=== PATIENT | female | born 1995 | race Two or more races ===

== ENCOUNTER 2020-04-08 15:27 | Outpatient (CLI) | payer MEDICAID, SELFPAY ==
--- NOTE | ~2020-04-08 | US_ITS ---
EXAMINATION: US OB <= 14 weeks fetus DATE: 04/08/2020 16:09 INDICATION: First trimester dating TECHNIQUE: Real-time pelvic transabdominal ultrasound was performed. COMPARISON: None. FINDINGS: The uterus measures 8.9 x 7.3 x 6.0 cm. There is an intrauterine gestational sac. A yolk s ac is identified. heart motion is identified measuring 161 beats per minute (bpm) by M-mode Dop pler. The crown rump length measures 1.5 cm , which correlates with an estimated gestational ag e of 7 weeks and 6 day(s) (+/-) 5 day(s). The right ovary is not visualized however no right adnexal abnormality is seen. The left ovary measur es 3.4 x 2.5 x 2.7 cm. There is normal vascular flow in the left ovary. There is no free fluid in the pelvis. IMPRESSION: 1. Live intrauterine with an estimated gestational age of 7 weeks and 6 day(s) (+/-) 5 day( s) and an estimated delivery date of 11/19/2020. Reviewed, dictated and finalized at location A. ER FLATWORK IMPRESSION: 1. Live intrauterine with an estimated gestational age of 7 weeks and 6 day(s) (+/-) 5 day(s) and an estimated delivery date of 11/19/2020.
== END 2020-04-08 15:28 | disposition home or self-care (01) ==
PROVIDERS: Visit Provider Obstetrics & Gynecology
DX: N91.2 Amenorrhea, unspecified (principal)
CPT/HCPCS: 76801

== ENCOUNTER 2020-04-17 12:14 | Emergency (ER) | payer MEDICAID, SELFPAY ==
--- NOTE | 2020-04-17 12:32 | ED.NAVMDI ---
HPI - Nausea/Vomiting/Diarrhea General Chief complaint: Nausea/Vomiting/Diarrhea Stated complaint: 9 wks /headache/tired/vomiting Time Seen by Provider: 04/17/20 12:32 Source: patient and RN notes reviewed Mode of arrival: ambulatory Limitations: no limitations History of Present Illness HPI Narrative: 25-year-old female presents to the urgent care with complaints of headache, increased fatigue, backaches, vomiting yesterday. States that she ate left over food and has a HX of GI issues. States that she feels better today but has mild suprapubic pain (pain scale 2). Denies urinary SX. Denies vaginal discharge or bleeding. States that she is able to tolerate fluids today 9 weeks preg G[address] Dr Roxie Mcfarlane =, states that she had her first appointment with OB on week 7, All lab work was normal and ultrasound showed an intrauterine with a heartbeat. Has an apt Apr Related Data Home Medications Medication Instructions Recorded Confirmed docosahexaenoic acid 200 mg capsule mg PO 03/31/20 03/31/20 prenat.vits,eliza,[id number] 1 tablet PO DAILY 04/17/20 04/17/20 [ Vitamin] Allergies Allergy/AdvReac Type Severity Reaction Status Date / Time No Known Allergies Allergy Unverified 04/17/20 12:22 Review of Systems Review of Systems: Narrative: CONSTITUTIONAL: Denies fever. chills, or sweats yesterday EYES: Denies visual changes, redness, or discharge. ENT: Denies rhinorrhea, congestion, sore throat, or otalgia. CARDIOVASCULAR: Denies chest pain, palpitations, or edema. RESPIRATORY: Denies cough or dyspnea. GASTROINTESTINAL: abdominal pain, nausea, vomiting x 1 yesterday. Denies diarrhea. GENITOURINARY: Denies dysuria or hematuria. SKIN: Denies rash or itching. MUSCULOSKELETAL: Denies back pain, joint pain, or myalgia. NEUROLOGIC: Denies numbness, or weakness. Headache yesterday PSYCHIATRIC: Denies anxiety or depression. All other systems reviewed are negative, except as documented in HPI. [facility] Social History Social History (Updated 03/31/20 @ 10:11 by Antonia Walker) Smoking status: Never smoker Alcohol intake: never Substance use: never Comments At the time of my signature, I reviewed and agree with the nursing past medical, surgical, social, and family history. There is no relevant family history pertinent to the patient complaint. Exam Narrative: Exam Narrative: GENERAL: This is a well-nourished, well-developed patient, in no apparent distress. HEAD: normocephalic, atraumatic. EYES: PERRL. Sclera clear/white. Vision is grossly intact. NECK: Neck supple, non-tender without lymphadenopathy, masses or thyromegaly. CARDIOVASCULAR: Regular rate and rhythm without murmurs, gallops, or rubs. RESPIRATORY: Clear to auscultation. Breath sounds equal bilaterally. No wheezes, rales, or rhonchi. GASTROINTESTINAL: Abdomen soft, nondistended. Bowel sounds are active. No hepato-splenomegaly, or palpable masses. No guarding. No rebound tenderness. Suprapubic tenderness noted on light palpation. SKIN: warm, intact with no suspicious lesions or rash, good texture and turgor. NEURO: awake, alert, and oriented to person, place and time. There were no obvious focal neurologic abnormalities. EXTREMITIES: No clubbing, cyanosis, or edema. No joint tenderness, effusion, or edema noted. BACK: Nontender without deformity or crepitance. No flank tenderness. Course Vital Signs Vital signs: Vital Signs Temperature 97.5 F L 04/17/20 12:35 Pulse Rate 82 04/17/20 12:35 Respiratory Rate 04/17/20 12:35 Blood Pressure 110/64 04/17/20 12:35 Pulse Oximetry 100 04/17/20 12:35 Temperature 97.5 F L 04/17/20 12:35 Pulse Rate 82 04/17/20 12:35 Respiratory Rate 20 04/17/20 12:35 Blood Pressure 110/64 04/17/20 12:35 Pulse Oximetry 100 04/17/20 12:35 Reviewed, normal MDM - Nausea/Vomiting/Diarrhea Differential Diagnosis Differential diagnosis: Likely food poisoning, nakita
[2020-04-17 12:35] VITALS: BP 110/64; PULSE 82; RESP 20; TEMP 36.4; O2SAT 100
== END 2020-04-17 13:00 | disposition home or self-care (01) ==
PROVIDERS: Emergency Provider Nurse Practitioner; PCP Obstetrics & Gynecology
DX: O26.892 Other specified pregnancy related conditions, second trimester (principal); Z3A.09 9 weeks gestation of pregnancy
CPT/HCPCS: 81003; 99212; G0463

== ENCOUNTER 2020-04-21 09:01 | Emergency (ER) | payer MEDICAID, SELFPAY ==
--- NOTE | ~2020-04-21 | XR_ITS ---
EXAMINATION: XR chest 1V portable INDICATION: Shortness of breath TECHNIQUE: Portable AP chest at 1114 hours COMPARISON: None available FINDINGS: The lungs are free of acute opacities. There is no pleural effusion or pneumothorax. The ca rdiomediastinal silhouette is normal. IMPRESSION: 1. No acute cardiopulmonary abnormality. Reviewed, dictated and finalized at location A. INSPECTOR
--- NOTE | ~2020-04-21 | US_ITS ---
EXAMINATION: US OB <= 14 weeks fetus DATE: 04/21/2020 10:54 INDICATION: Right lower quadrant pain, first trimester TECHNIQUE: Real-time pelvic transabdominal and transvaginal ultrasound was performed. COMPARISON: 04/08/2020 FINDINGS: The uterus measures 8.2 x 7.1 x 7.9 cm. There is an intrauterine gestational sac. A yolk s ac is identified. heart motion is identified measuring 172 beats per minute (bpm) by M-mode Dop pler. The crown rump length measures 2.7 cm , which correlates with an estimated gestational ag e of 9 weeks and 4 day(s) (+/-) 6 day(s). The right ovary measures 3.3 x 1.3 x 1.4 cm. The left ovary measures 2.3 x 2.2 x 1.3 cm. There is nor mal vascular flow in the ovaries. There is no free fluid in the pelvis. IMPRESSION: 1. Live intrauterine with an estimated gestational age of 9 weeks and 4 day(s) (+/-) 6 day( s) and an estimated delivery date of 11/20/2020. 2. No sonographic correlate for the patient's symptoms. Reviewed, dictated and finalized at location A. R MECHANIC IMPRESSION: 1. Live intrauterine with an estimated gestational age of 9 weeks and 4 day(s) (+/-) 6 day(s) and an estimated delivery date of 11/20/2020. 2. No sonographic correlate for the patient's symptoms.
[2020-04-21 09:08] VITALS: BP 120/78; PULSE 66; RESP 17; TEMP 36.6; O2SAT 97
[2020-04-21 09:51] LABS: Basophils Absolute Auto 0.1 K/mm3 (0.0-0.1); Basophils Percent Auto 0.4 % (0.2-1.2); Eosinophils Absolute Auto 0.1 K/mm3 (0-0.3); Eosinophils Percent Auto 0.6 % (0-4.4); Hematocrit 42.1 % (37.0-47.0); Hemoglobin 14.2 g/dL (12.0-15.0); Immature Granulocyte Absolute 0.07 K/mm3 (0.00-0.031); Immature Granulocyte Percent A 0.6 % (0-0.5); Lymphocytes Absolute Auto 3.25 K/mm3 (0.9-3.2); Lymphocytes Percent Auto 28.4 % (18.3-44.2); Mean Corpuscular HGB Conc 33.7 g/dl (32-36); Mean Corpuscular Hemoglobin 28.7 pg (26-34); Mean Corpuscular Volume 85.1 fl (80-100); Mean Platelet Volume 9.6 fl (7.4-10.4); Monocytes Absolute Auto 0.7 K/mm3 (0.1-0.6); Monocytes Percent Auto 6.5 % (2.6-8.5); Neutrophils Absolute Auto 7.3 K/mm3 (1.3-6.7); Neutrophils Percent Auto 63.5 % (45.5-73.1); Platelet Count Result 375 k/mm3 (150-375); Red Blood Count 4.95 M/mm3 (4.2-5.4); Red Cell Distribution Width 13.7 % (11.5-14.5); White Blood Count 11.4 K/mm3 (4.5-10.0)
[2020-04-21 09:58] LABS: Add Urine Microscopic? YES; Appearance Urine Clear (Clear); Bacteria Urine Trace /hpf; Bilirubin Urine Negative (Negative); Blood Urine Negative (Negative); Color Urine Yellow (Yellow); Glucose Urine UA Negative (Negative); Ketones Urine Negative (Negative); Leukocyte Esterase Ur Negative LEU/UL (Negative); Mucus Urine Rare /lpf; Nitrate Urine Negative (Negative); Protein Urine Negative (Negative); Specific Grav Ur 1.016 (1.001-1.035); Squamous Epithelial Cell Urine Occasional /hpf (Few); Urobilinogen Urine Negative mg/dL (<2.0); WBC Urine 0-3 /hpf
[2020-04-21 10:07] LABS: Alanine Aminotransferase 53 U/L (4-35); Albumin Level 4.3 g/dL (3.5-5.1); Alkaline Phosphatase 60 U/L (38-126); Anion Gap 6 mmol/L (8-16); Aspartate Amino Transferase 47 U/L (14-36); Bilirubin,Total 0.3 mg/dL (0.2-1.3); Blood Urea Nitrogen 7 mg/dL (7-17); Calcium 9.2 mg/dL (8.4-10.2); Carbon Dioxide 27 mmol/L (22-30); Chloride 102 mmol/L (98-107); Estimated CRCL calculation 95 ml/min; Estimated Glomerular Filt Rate > 60; Glucose 74 mg/dL (65-105); Potassium 3.5 mmol/L (3.4-5.0); Sodium 135 mmol/L (137-145)
--- NOTE | 2020-04-21 11:07 | ED.ABDPAIN ---
HPI - Abdominal Pain General Chief Complaint: Abdominal Pain Stated Complaint: abdominal pain, 10 wks Time Seen by Provider: 04/21/20 09:15 Source: patient Mode of arrival: ambulatory Limitations: no limitations History of Present Illness HPI narrative: Patient is a 25-year-old female who presents to emergency department for evaluation of having had congestion headache and nonproductive cough started last Tuesday patient notes that her symptoms lasted for 1 day and resolved patient is followed by Dr. Mcfarlane is currently 10 weeks has had an ultrasound showing intrauterine patient denying any abdominal pain at this time noting that she has been getting for over a week now some intermittent discomfort in the right lower quadrant patient on arrival in no distress denies fever vomiting vaginal bleeding discharge currently is only taking vitamins denies sick contacts at home would like to be tested for Covid Related Data Home Medications Medication Instructions Recorded Confirmed docosahexaenoic acid 200 mg capsule mg PO 03/31/20 03/31/20 prenat.vits,eliza,[id number] 1 tablet PO DAILY 04/17/20 04/17/20 [ Vitamin] Allergies Allergy/AdvReac Type Severity Reaction Status Date / Time No Known Allergies Allergy Verified 04/21/20 09:15 Review of Systems Review of Systems: All systems reviewed & are unremarkable except as noted in HPI and below PMFSH Social History Social History Smoking status: Never smoker Alcohol intake: never Substance use: never Exam Narrative: Exam Narrative: GENERAL: Well-appearing, well-nourished, and in no acute distress. HEAD: Normocephalic, atraumatic. EYES: PERRLA and EOMI. ENT: Nares clear, no rhinorrhea or epistaxis. Mucous membranes moist. CHEST: Clear to auscultation. No respiratory distress. No wheezes rales or rhonchi HEART: Regular rate and rhythm. No murmur heard. Normal peripheral pulses. ABDOMEN: Soft, nontender, nondistended EXTREMITIES: Normal range of motion. No edema. SKIN: Warm, dry, no rash. NEURO: No focal deficits. Alert and oriented x3. PSYCH: Normal mood and affect. Course Course Emergency Course: Patient in the room no distress aware of case findings treatment plan diagnosis as well as discussion and recommendations of her piper helper provided with reasons to return hemodynamically stable no pneumonia normal oxygenation Consultations Consultation #1: Discussed case with Dr. Mcfarlane who would like an ultrasound as well as a chest x-ray if those are normal patient can follow in clinic as planned and can be treated symptomatically for her cold symptoms and is aware of pending Covid testing Date: 04/21/20 Time: 11:08 Vital Signs Vital signs: Vital Signs Temperature 97.8 F 04/21/20 09:08 Pulse Rate 66 04/21/20 09:08 Respiratory Rate 17 04/21/20 09:08 Blood Pressure 120/78 04/21/20 09:08 Pulse Oximetry 97 04/21/20 09:08 Temperature 97.8 F 04/21/20 09:08 Pulse Rate 66 04/21/20 09:08 Respiratory Rate 17 04/21/20 09:08 Blood Pressure 120/78 04/21/20 09:08 Pulse Oximetry 97 04/21/20 09:08 MDM - Abdominal Pain MDM Narrative Medical decision making narrative: Patient in the room no distress aware of case findings treatment plan diagnosis will follow with piper helper as planned no high risk changes in the blood work or imaging will be discharged provided with reasons to return ABCs and vital signs intact and stable Lab Data Result diagrams: 04/21/20 09:41 04/21/20 09:41 Labs: Lab Results 04/21/20 04/21/20 04/21/20 Range/Units 09:41 09:41 09:41 WBC 11.4 H (4.5-10.0) K/mm3 RBC 4.95 (4.2-5.4) M/mm3 Hgb 14.2 (12.0-15.0) g/dL Hct 42.1 (37.0-47.0) % MCV 85.1 (80-100) fl MCH 28.7 (26-34) pg MCHC 33.7 (32-36) g/dl RDW 13.7 (11.5-14.5) % Plt Count 375 (1
[2020-04-21 12:02] VITALS: BP 125/78; PULSE 92; RESP 17; O2SAT 100
[2020-04-21 19:06] LABS: SARS-CoV-2 RNA PCR Positive
== END 2020-04-21 12:03 | disposition home or self-care (01) ==
PROVIDERS: Emergency Medicine Emergency Medical Services; Emergency Provider Emergency Medicine; PCP Obstetrics & Gynecology
DX: O98.511 Other viral diseases complicating pregnancy, first trimester (principal); U07.1 COVID-19; J06.9 Acute upper respiratory infection, unspecified; Z3A.10 10 weeks gestation of pregnancy
CPT/HCPCS: 36415; 71045; 76801; 80053; 81001; 85025; 99284; C9803; U0003

== ENCOUNTER 2020-05-24 07:30 | Outpatient (CLI) | payer OTHER, SELFPAY ==
--- NOTE | ~2020-05-24 | US_ITS ---
EXAMINATION: US OB <= 14 weeks fetus DATE: 05/24/2020 08:56 INDICATION: Vaginal spotting during early second trimester of . TECHNIQUE: Real-time pelvic ultrasound utilizing both a transvaginal and transabdominal probe was pe rformed. The interpreting radiologist was not present for the study. COMPARISON: None. FINDINGS: The uterus measures 15.7 x 5.8 x 9.1 cm. There is an intrauterine gestational sac. A yolk sac and si ngle fetus in transverse lie are identified. The crown rump length measures 8.6 cm, which correlates with an estimated gestational age of 14 weeks and 3 days. heart motion is identified measuring 152 beats per minute (bpm) by M-mode Doppler. The right ovary measures 1.6 x 0.8 x 1.8 cm. Vascular flow is identified in the right ovary on color Doppler. The left ovary is not visualized. There is no free fluid in the pelvis. IMPRESSION: 1. Single living fetus in transverse lie with heart rate of 152 bpm. 2. Gestational age by ultrasound of 14 weeks 3 day(s) +/- 1 week and 2 day(s) with ultrasound estima samara date of delivery (KELBY) of 11/19/2020. Reviewed, dictated and finalized at location A. H PICKER IMPRESSION: 1. Single living fetus in transverse lie with heart rate of 152 bpm. 2. Gestational age by ultrasound of 14 weeks 3 day(s) +/- 1 week and 2 day(s) with ultrasound estimated date of delivery (KELBY) of 11/19/2020.
== END 2020-05-24 07:31 | disposition home or self-care (01) ==
PROVIDERS: Visit Provider Obstetrics & Gynecology
DX: O26.852 Spotting complicating pregnancy, second trimester (principal); Z3A.14 14 weeks gestation of pregnancy
CPT/HCPCS: 76801

== ENCOUNTER 2020-06-19 11:12 | Outpatient (CLI) | payer OTHER, SELFPAY ==
--- NOTE | ~2020-06-19 | US_ITS ---
EXAMINATION: US OB /maternal detail EXAM DATE: 06/19/2020 11:53 INDICATION: Anatomy scan. 2nd trimester. TECHNIQUE: Pelvic obstetrical transabdominal sonogram was performed by a technologist. There are mu ltiple grayscale and Doppler images available for interpretation. FINDINGS: There is a single fetus identified in breech presentation with a heart rate of 145 beats pe r minute. The placenta is located in the posterior position. There is no sonographic evidence of ret roplacental hemorrhage identified. There is subjectively expected amount of amniotic fluid. BIOMETRIC DATA: Biparietal diameter (BPD): 4.1 cm ----------------> 18 weeks 3 days. Head circumference (HC): 15.0 cm ----------------> 18 weeks 0 days. Abdominal circumference (AC): 12.5 cm ----------> 18 weeks 1 day. Femur length (FL): 2.8 cm --------------------------> 18 weeks 3 days. These measurements are concordant. HC/AC ratio is 1.19 (The 5th -- 95th percentile range is 1.08-1.30. Estimated weight is 232 g +/- 35 g. This is the 62nd percentile when the currently reported cl inical gestation age 18 weeks 0 days, clinical estimated date of delivery (KELBY-OPE) 11/20/2020 is used . estimated gestational age based on measurements from this exam is 18 weeks 2 days, with an es timated date of delivery (KELBY-AUA) 11/18. ANATOMIC SURVEY: The following anatomy is identified and is sonographically normal in appearance: Cerebral ventricles Cerebellum Cisterna magna Nuchal fold CTL-spine Four-chamber heart Diaphragm Stomach Kidneys Bladder Three-vessel cord Cord insertion IMPRESSION: 1. Single fetus in breech presentation with heart rate 145 beats per minute. 2. Estimated weight of 232 grams, 62nd percentile using the currently reported clinical gestat ion age of 18 weeks 0 days, KELBY(OPE) 11/20/2020. 3. Normal anatomic survey. Reviewed, dictated and finalized at location B. INE GREASER IMPRESSION: 1. Single fetus in breech presentation with heart rate 145 beats per minute. 2. Estimated weight of 232 grams, 62nd percentile using the currently re ported clinical gestation age of 18 weeks 0 days, KELBY(OPE) 11/20/2020. 3. Normal anatomic survey.
== END 2020-06-19 11:13 | disposition home or self-care (01) ==
PROVIDERS: Visit Provider Obstetrics & Gynecology
DX: Z36.9 Encounter for antenatal screening, unspecified (principal); Z3A.18 18 weeks gestation of pregnancy
CPT/HCPCS: 76805

== ENCOUNTER 2020-08-06 14:23 | Outpatient (CLI) | payer OTHER, SELFPAY ==
--- NOTE | ~2020-08-06 | US_ITS ---
EXAMINATION: US OB follow up DATE: 08/06/2020 15:12 INDICATION: Small for gestational age. Borderline amniotic fluid volume. Second trimester of pregnanc y. TECHNIQUE: Real-time ultrasound of the pelvis was performed. The interpreting radiologist was not pre sent for the study. COMPARISON: 06/19/2020 FINDINGS: There is a single living fetus in transverse lie with head to maternal left. The placenta is left po sterior. heart rate is 159 beats per minute (bpm). The amniotic fluid index is 15.5 cm, which is normal (5th%-95%: 9.8-21.9 cm at 24 weeks estimated gestational age). Cervical length measures 3.0 cm which is at the lower limits of normal The following biometric data were obtained: BPD: 6.0 cm -> 24 weeks 4 days Head circumference: 21.8 cm -> 23 weeks 6 days Abdominal circumference: 20.1 cm -> 24 weeks 5 days Femur length: 4.5 cm -> 25 weeks 0 days These measurements are concordant. Head circumference to abdominal circumference ratio: 1.09 (normal range 1.04-1.22). Estimated weight: 723 g (+/-) 108 g. or 1 lbs. 10 oz. (+/-) 4 oz. IMPRESSION: 1. Single living fetus in transverse lie with heart rate of 159 bpm. 2. Normal amniotic fluid index of 15.5 cm. 3. Estimated weight is 32nd percentile by Hadlock criteria when 11/20/2020 is used as the estima samara date of delivery (KELBY). Please correlate with clinical information or earlier ultrasounds for mos t accurate KELBY. 4. Cervical length of approximately 3.0 cm which is at the lower limits of normal although assessment is significantly more limited on transabdominal and transvaginal imaging. Reviewed, dictated and finalized at location A. IMPRESSION: 1. Single living fetus in transverse lie with heart rate of 159 bpm. 2. Normal amniotic fluid index of 15.5 cm. 3. Estimated weight is 32nd percentile by Hadlock criteria when 11/20/2020 is used as the estimated date of delivery (KELBY). Please correlate with clinica l information or earlier ultrasounds for most accurate KELBY. 4. Cervical length of approximately 3.0 cm which is at the lower limits of norm al although assessment is significantly more limited on transabdominal and pardo svaginal imaging.
== END 2020-08-06 14:24 | disposition home or self-care (01) ==
LOC: ANHIMG 14:26
PROVIDERS: Visit Provider Obstetrics & Gynecology
DX: O28.8 Other abnormal findings on antenatal screening of mother (principal); Z3A.00 Weeks of gestation of pregnancy not specified
CPT/HCPCS: 76816

== ENCOUNTER 2020-08-22 14:52 | Outpatient (CLI) | payer OTHER, SELFPAY ==
[2020-08-22 16:14] LABS: Hemoglobin 12.4 g/dL (12.0-15.0); Mean Corpuscular HGB Conc 33.5 g/dl (32-36); Mean Corpuscular Hemoglobin 28.9 pg (26-34); Mean Corpuscular Volume 86.2 fl (80-100); Mean Platelet Volume 9.6 fl (7.4-10.4); Platelet Count Result 358 k/mm3 (150-375); Red Blood Count 4.29 M/mm3 (4.2-5.4); White Blood Count 15.7 K/mm3 (4.5-10.0)
[2020-08-22 16:27] LABS: Glucose 1 Hour PP 50gm Dose 161 mg/dL
[2020-08-22 17:09] LABS: HIV 1/2 Ab P24 Ag Result Negative (Negative)
== END 2020-08-22 14:53 | disposition home or self-care (01) ==
LOC: ANHLAB 14:53
PROVIDERS: Visit Provider Obstetrics & Gynecology
DX: Z34.90 Encounter for supervision of normal pregnancy, unspecified, unspecified trimester (principal); Z3A.00 Weeks of gestation of pregnancy not specified
CPT/HCPCS: 36415; 82947; 85027; 86703; G0432

== ENCOUNTER 2020-08-26 07:23 | Outpatient (CLI) | payer OTHER, SELFPAY ==
[2020-08-26 08:15] LABS: Glucose Fasting Gestational 80 mg/dL (>/=95)
[2020-08-26 10:00] LABS: Glucose 1 Hour Gest 173 mg/dL (>/=180)
[2020-08-26 10:45] LABS: Glucose 2 Hour Gest 157 mg/dL (>/= 155)
[2020-08-26 12:05] LABS: Glucose 3 Hour Gest 125 mg/dL (>/=140)
== END 2020-08-26 07:24 | disposition home or self-care (01) ==
LOC: ANHLAB 07:29
PROVIDERS: Visit Provider Obstetrics & Gynecology
DX: O24.419 Gestational diabetes mellitus in pregnancy, unspecified control (principal); Z3A.28 28 weeks gestation of pregnancy
CPT/HCPCS: 36415; 82951; 82952

== ENCOUNTER 2020-08-31 17:35 | Observation (INO) | payer OTHER, SELFPAY ==
[2020-08-31 18:00] VITALS: BP 131/88; PULSE 111; O2SAT 100
[2020-08-31 18:05] VITALS: PULSE 110; O2SAT 100
[2020-08-31 18:34] VITALS: O2SAT 100
--- NOTE | 2020-08-31 18:34 | OBADM ---
This patient, Lázaro Smyth, admitted to the OB room OB Post [facility] for observation. Patient/family oriented to hospital policies and general routines including ID bracelet, bed and alarms, visiting hours, pain management, procedures, bathroom and other care routines, personal items, smoking policy, room service/diet, and visiting hours. Patient/Family are encouraged to report perceived risks to care and to ask questions if they do not understand what they are told or what they should do. Pt. presents with SOB and congestion.
--- NOTE | 2020-08-31 18:46 | PC.NURSE ---
[id number]--Phone call to Dr. Thakur re: SOB, v.s., fhr tracing, no ctxns, and lung sounds. Orders to DC to ED for further evaluation.
--- NOTE | 2020-09-24 12:48 | PM.OBTRLD ---
OB - Triage/Final Diagnosis Visit Information Comments/Additional reasons for admission: I have assessed the risk for this patient, Lázaro Smyth, and determined that she would benefit from observation care. Final Diagnosis (1) Shortness of breath during : Code(s): O99.891 - Other specified diseases and conditions complicating ; R06.02 - Shortness of breath Status: Acute
== END 2020-08-31 18:07 | disposition other institution (70) ==
PROVIDERS: Admitting Provider Student in an Organized Health Care Education/Training Program; Visit Provider Student in an Organized Health Care Education/Training Program
DX: O26.893 Other specified pregnancy related conditions, third trimester (principal); R06.02 Shortness of breath; Z3A.28 28 weeks gestation of pregnancy
CPT/HCPCS: 99283; A9270; G0378; G0379

== ENCOUNTER 2020-08-31 18:15 | Emergency (ER) | payer OTHER, SELFPAY ==
[2020-08-31 18:18] VITALS: BP 126/77; PULSE 110; RESP 20; TEMP 37; O2SAT 100
[2020-08-31 19:23] VITALS: BP 134/86; PULSE 113; RESP 18; O2SAT 100
--- NOTE | 2020-08-31 19:36 | ED.URI ---
HPI - URI/Sore Throat General Chief Complaint: Upper Respiratory Infection Stated Complaint: SOB x 3 hours Time Seen by Provider: 08/31/20 19:24 History of Present Illness HPI Narrative: Cough, nasal congestion, sinus pressure, and right ear pain for the past 3 days. Feeling worse today and mildly short of breath. Concerned because she is 28 weeks . She was seen by OB prior to coming to the ED and cleared from their standpoint. No abdominal/pevic pain, Vaginal bleeding/discharge, fever, nausea, dysuria, or other systemic symptom. Related Data Home Medications Medication Instructions Recorded Confirmed prenat.vits,eliza,[id number] 1 tablet PO DAILY 04/17/20 09/15/20 Allergies Allergy/AdvReac Type Severity Reaction Status Date / Time No Known Allergies Allergy Verified 09/15/20 09:59 Review of Systems Review of Systems: All systems reviewed & are unremarkable except as noted in HPI and below Cardiovascular: Cardiovascular: Denies chest pain Neurologic: Denies weakness [facility] Social History Social History Smoking status: Never smoker Alcohol intake: never Substance use: never Gender identity (if verbalized by the patient): Female Exam Const: General: healthy appearing, no acute distress and alert Orientation/consciousness: patient oriented x3 HENMT: Head: normal to inspection Ears: TM abnormal bulging on the right; not with effusion and not erythematous General nose exam: Normal external nose present and Normal nares present Face and sinus: normal facial exam and sinuses nontender Throat: posterior oropharynx normal Eyes: Conjunctivae: conjunctivae normal Pupils: Equal, round and reactive pupils present EOM: EOMs intact bilaterally Neck: Neck: normal visual inspection and no lymphadenopathy Chest: Chest palpation & inspection: no tenderness Resp: Effort & Inspection: normal respiratory effort Auscultation: clear to auscultation bilaterally, no rales, no rhonchi and no wheezes Cardio: Jugular venous distension: no JVD Rate: regular rate Rhythm: regular rhythm Heart sounds: no murmurs GI: GI Palp: Yes Soft to palpation and No Tenderness to palpation present (GI) Other: gravid Skin: General skin exam: normal color Neuro: General: patient oriented x3 and moves all extremities Speech: normal speech Extrem: General: no edema Psych: Appearance: well kempt Affect: normal affect Course Vital Signs Vital signs: Vital Signs Temperature 37.0 C 08/31/20 18:18 Pulse Rate 110 H 08/31/20 18:18 Respiratory Rate 20 08/31/20 18:18 Blood Pressure 126/77 08/31/20 18:18 Pulse Oximetry 100 08/31/20 18:18 Temperature 37.0 C 08/31/20 18:18 Pulse Rate 112 H 08/31/20 20:49 Respiratory Rate 18 08/31/20 20:49 Blood Pressure 123/79 08/31/20 20:49 Pulse Oximetry 100 08/31/20 20:49 MDM - URI/Sore Throat MDM Narrative Medical decision making narrative: history and exam benign. normal vitals. likely viral URI/seasonal allergies. Cleared by OB. will treat symptomatically. She had COVID-19 in April Differential Diagnosis Differential diagnosis: Likely upper respiratory infection Medical Records Attestation: I reviewed the patient's medical records. Discharge Plan Discharge Clinical Impression: Otitis media, Rhinitis Patient Disposition: Home, Self-Care Condition: Stable Instructions: Ear Infection (GEN), Rhinosinusitis (ED) Additional Instructions: You can continue to use afrin as directed every 12 hours for the next 3 days Prescriptions: New loratadine [Claritin] 10 mg tablet 10 mg PO DAILY PRN (Reason: allergy symptoms) Qty: 20 RF: 0 diphenhydramine HCl [Benadryl] 25 mg capsule 25 mg PO TID PRN (Reason: congestion) Qty: 30 RF: 0 Cepacol Sore Throat (roberto-men) 15-2.6 mg lozenge 1 yuval mucous membrane Q2-4H PRN (Reason: sore throat) Qty: 16 RF: 0 No Action
[2020-08-31] MEDS: LORATADINE 10 MG TABLET PO (20:15)
[2020-08-31] MEDS: BENZOCAINE/MENTHOL (*BKC) 18 EA LOZENGE 1 LOZENGE PO (20:16)
[2020-08-31] MEDS: OXYMETAZOLINE HCL 0.05% NAS 15 ML BTL (*BKC) 2 SPRAY NASAL (20:17)
[2020-08-31 20:49] VITALS: BP 123/79; PULSE 112; RESP 18; O2SAT 100
== END 2020-08-31 20:52 | disposition home or self-care (01) ==
PROVIDERS: Emergency Provider Emergency Medicine
DX: O99.513 Diseases of the respiratory system complicating pregnancy, third trimester (principal); J31.0 Chronic rhinitis; O99.891 Other specified diseases and conditions complicating pregnancy; H66.91 Otitis media, unspecified, right ear; Z3A.28 28 weeks gestation of pregnancy
CPT/HCPCS: 99283; A9270

== ENCOUNTER 2020-09-26 16:11 | Outpatient (CLI) | payer OTHER, SELFPAY ==
[2020-09-26] VITALS (7 sets, daily range): BP systolic 119–130; BP diastolic 72–87; PULSE 71–73
== END 2020-09-26 17:50 | disposition home or self-care (01) ==
LOC: ANHOBOP 16:33 → ANHOBPP 16:34
PROVIDERS: Visit Provider Obstetrics & Gynecology
DX: O13.9 Gestational [pregnancy-induced] hypertension without significant proteinuria, unspecified trimester (principal); Z3A.00 Weeks of gestation of pregnancy not specified
CPT/HCPCS: 59025; 99199

== ENCOUNTER 2020-10-20 17:01 | Outpatient (CLI) | payer OTHER, SELFPAY ==
[2020-10-20 15:12] LABS: Basophils Absolute Auto 0.1 K/mm3 (0.0-0.1); Basophils Percent Auto 0.4 % (0.2-1.2); Eosinophils Absolute Auto 0.1 K/mm3 (0-0.3); Eosinophils Percent Auto 0.9 % (0-4.4); Hematocrit 36.4 % (37.0-47.0); Hemoglobin 12.2 g/dL (12.0-15.0); Immature Granulocyte Absolute 0.06 K/mm3 (0.00-0.031); Immature Granulocyte Percent A 0.5 % (0-0.5); Lymphocytes Absolute Auto 3.27 K/mm3 (0.9-3.2); Lymphocytes Percent Auto 26.4 % (18.3-44.2); Mean Corpuscular HGB Conc 33.5 g/dl (32-36); Mean Corpuscular Hemoglobin 28.3 pg (26-34); Mean Corpuscular Volume 84.5 fl (80-100); Mean Platelet Volume 10.6 fl (7.4-10.4); Monocytes Absolute Auto 0.6 K/mm3 (0.1-0.6); Monocytes Percent Auto 4.8 % (2.6-8.5); Neutrophils Absolute Auto 8.3 K/mm3 (1.3-6.7); Platelet Count Result 279 k/mm3 (150-375); Red Blood Count 4.31 M/mm3 (4.2-5.4); Red Cell Distribution Width 14.1 % (11.5-14.5); White Blood Count 12.4 K/mm3 (4.5-10.0)
[2020-10-20 15:22] LABS: Alanine Aminotransferase 15 U/L (4-35); Alkaline Phosphatase 149 U/L (38-126); Anion Gap 7 mmol/L (8-16); Aspartate Amino Transferase 26 U/L (14-36); Bilirubin,Total 0.1 mg/dL (0.2-1.3); Blood Urea Nitrogen 10 mg/dL (7-17); Calcium 9.2 mg/dL (8.4-10.2); Carbon Dioxide 19 mmol/L (22-30); Chloride 106 mmol/L (98-107); Estimated Glomerular Filt Rate > 60; Glucose 129 mg/dL (65-105); Potassium 3.6 mmol/L (3.4-5.0); Sodium 132 mmol/L (137-145); Uric Acid 6.1 mg/dL (2.5-7.5)
[2020-10-20 15:52] LABS: Add Urine Microscopic? YES; Appearance Urine Cloudy (Clear); Bacteria Urine 3+ /hpf; Bilirubin Urine Negative (Negative); Blood Urine Negative (Negative); Color Urine Yellow (Yellow); Glucose Urine UA Negative (Negative); Ketones Urine Negative (Negative); Leukocyte Esterase Ur Trace LEU/UL (NEGATIVE); Mucus Urine Rare /lpf; Nitrate Urine Negative (Negative); Protein Urine 2+ mg/dL (Negative); RBC Urine 0-2 /hpf (0-2); Specific Grav Ur 1.008 (1.001-1.035); Squamous Epithelial Cell Urine Occasional /hpf (Few); Urobilinogen Urine Negative mg/dL (<2.0)
[2020-10-20 16:15] LABS: Creatinine Urine 42.7 mg/dL
[2020-10-20 16:39] LABS: Total Protein Urine Random 318 mg/dL; Ur Ttl Prot Creatinine Ratio 7.45 mg/mg (0-0.20)
[2020-10-20 17:14] VITALS: BP 132/90
== END 2020-10-20 17:10 | disposition home or self-care (01) ==
PROVIDERS: Visit Provider Obstetrics & Gynecology
DX: O13.9 Gestational [pregnancy-induced] hypertension without significant proteinuria, unspecified trimester (principal); Z3A.00 Weeks of gestation of pregnancy not specified
CPT/HCPCS: 36415; 59025; 80053; 81001; 82570; 84156; 84550; 85025; 87086; 87088

== ENCOUNTER 2020-10-21 15:28 | Outpatient (CLI) | payer OTHER, SELFPAY ==
--- NOTE | ~2020-10-21 | US_ITS ---
EXAMINATION: US OB follow up DATE: 10/21/2020 16:14 INDICATION: Uterine size versus date discrepancy, small for expected estimated gestational age during third trimester . TECHNIQUE: Real-time ultrasound of the pelvis was performed. The interpreting radiologist was not pre sent for the study. COMPARISON: 08/06/2020 FINDINGS: There is a single living fetus in breech presentation. The placenta is posterior. heart rate i s 138 beats per minute (bpm). The amniotic fluid index is 9.2 cm, which is normal (5th%-95%: 7.9-24. 9 cm at 35 weeks estimated gestational age). The following biometric data were obtained: BPD: 8.0 cm -> 32 weeks 1 days Head circumference: 30.4 cm -> 33 weeks 5 days Abdominal circumference: 29.7 cm -> 33 weeks 5 days Femur length: 6.5 cm -> 33 weeks 3 days These measurements are concordant. Head circumference to abdominal circumference ratio: 1.02 (normal range 0.96-1.11). Estimated weight: 2202 g (+/-) 330 g or 4 lbs. 14 oz. (+/-) 12 oz. IMPRESSION: 1. Single living fetus in breech presentation with heart rate of 138 bpm. 2. Estimated weight is 6th percentile by Hadlock criteria when 11/20/2020 is used as the estimat ed date of delivery (KELBY). Please correlate with clinical information or earlier ultrasounds for most accurate KELBY. 3. Normal amniotic fluid index of 9.2 cm. Reviewed, dictated and finalized at location A. IMPRESSION: 1. Single living fetus in breech presentation with heart rate of 138 bpm. 2. Estimated weight is 6th percentile by Hadlock criteria when 11/20/2020 is used as the estimated date of delivery (KELBY). Please correlate with clinical information or earlier ultrasounds for most accurate KELBY. 3. Normal amniotic fluid index of 9.2 cm.
== END 2020-10-21 15:29 | disposition home or self-care (01) ==
LOC: ANHIMG 15:31
PROVIDERS: Visit Provider Obstetrics & Gynecology
DX: O26.849 Uterine size-date discrepancy, unspecified trimester (principal); Z3A.00 Weeks of gestation of pregnancy not specified
CPT/HCPCS: 76816; 81050; 82575; 84156

== ENCOUNTER 2020-10-21 17:07 | Outpatient (CLI) | payer OTHER, SELFPAY ==
[2020-10-21 17:38] VITALS: BMI 25.8
[2020-10-21 20:58] LABS: Collection Time Urine 24 HOURS
[2020-10-21 20:59] LABS: Total Volume 24 Hour Urine 1600 ml
[2020-10-21 21:00] LABS: Patient Weight 141 Lbs
[2020-10-21 21:08] LABS: Creatinine Clearance Urine 106.5 ml/min (75-125); Creatinine Urine 54.6 mg/dL
[2020-10-21 21:24] LABS: Total Protein Urine 24 Hr 5568 mg/24hr (28-141); Total Protein Urine Random 348 mg/dL
== END 2020-10-21 17:08 | disposition home or self-care (01) ==
LOC: ANHOBOP 17:29
PROVIDERS: Visit Provider Obstetrics & Gynecology
DX: O13.9 Gestational [pregnancy-induced] hypertension without significant proteinuria, unspecified trimester (principal); Z3A.00 Weeks of gestation of pregnancy not specified
CPT/HCPCS: 81050; 82575; 84156

== ENCOUNTER 2020-10-22 11:16 | Inpatient (IN) | payer OTHER, SELFPAY ==
[2020-10-22] VITALS (60 sets, daily range): BP systolic 113–159; BP diastolic 75–118; PULSE 65–113; RESP 14–18; TEMP 36–36.9; O2SAT 94–100; BMI 25.8
--- NOTE | 2020-10-22 11:16 | LDADM ---
This patient, Lázaro Smyth, was admitted to OB Post 117 on 10/22/20 at 11:16. Plans for labor, pain management and were discussed with patient. Patient/family oriented to hospital policies and general routines including ID bracelet, bed and alarms, visiting hours, pain management, procedures, bathroom and other care routines, personal items, smoking policy, room service/diet and guest tray routines, infant security routines, and visiting hours. Patient/Family are encouraged to report perceived risks to care and to ask questions if they do not understand what they are told or what they should do. See OBIX for further documentation.
[2020-10-22 12:26] LABS: Basophils Absolute Auto 0.1 K/mm3 (0.0-0.1); Basophils Percent Auto 0.4 % (0.2-1.2); Eosinophils Absolute Auto 0.1 K/mm3 (0-0.3); Eosinophils Percent Auto 0.7 % (0-4.4); Hemoglobin 13.7 g/dL (12.0-15.0); Immature Granulocyte Absolute 0.12 K/mm3 (0.00-0.031); Immature Granulocyte Percent A 0.9 % (0-0.5); Lymphocytes Percent Auto 25.3 % (18.3-44.2); Mean Corpuscular HGB Conc 34.3 g/dl (32-36); Mean Corpuscular Hemoglobin 28.5 pg (26-34); Mean Corpuscular Volume 83.3 fl (80-100); Mean Platelet Volume 11.2 fl (7.4-10.4); Monocytes Absolute Auto 0.8 K/mm3 (0.1-0.6); Monocytes Percent Auto 5.7 % (2.6-8.5); Platelet Count Result 312 k/mm3 (150-375); Red Cell Distribution Width 14.1 % (11.5-14.5); White Blood Count 13.4 K/mm3 (4.5-10.0)
[2020-10-22 12:39] LABS: Alanine Aminotransferase 19 U/L (4-35); Albumin Level 3.6 g/dL (3.5-5.1); Alkaline Phosphatase 179 U/L (38-126); Anion Gap 10 mmol/L (8-16); Aspartate Amino Transferase 28 U/L (14-36); Bilirubin,Total 0.2 mg/dL (0.2-1.3); Blood Urea Nitrogen 14 mg/dL (7-17); Calcium 10.3 mg/dL (8.4-10.2); Carbon Dioxide 19 mmol/L (22-30); Chloride 106 mmol/L (98-107); Estimated Glomerular Filt Rate > 60; Glucose 73 mg/dL (65-105); Sodium 135 mmol/L (137-145); Uric Acid 6.2 mg/dL (2.5-7.5)
--- NOTE | 2020-10-22 12:53 | PC.NURSE ---
Called Dr. Mcfarlane with lab results and BPs. Orders received.
[2020-10-22] MEDS: MAGNESIUM SULF 4 GM/WATER100ML 4 GM/100 ML BAG IVPB (13:26)
[2020-10-22] MEDS: LACTATED RINGERS 1,000 ML 125 ML IV CONT (13:27)
[2020-10-22] MEDS: MAGNESIUM SULF 20GM/WATER500ML 500 ML 50 MG IV CONT (14:07)
--- NOTE | 2020-10-22 15:06 | PM.IMHP ---
H&P: HPI History of Present Illness Date/Time: 10/22/20 15:06 25 y/o G1 at 35+6 with severe preeclampsia based on 24 hour urine > 5 grams protein (resulted this morning). She has mild DOBBINS, no visual changes. Normal movement. Occasional ctx. No vaginal bleeding or leaking fluid Chief Complaint: severe preeclampsia Review of Systems Review of Systems: All systems reviewed & are unremarkable except as noted in HPI and below PMFSH Family History Family History (Updated 10/20/20 @ 15:49 by Ciro Rodriguez RN) Other No pertinent family history Social History Social History Smoking status: Never smoker Second hand tobacco smoke exposure: No Alcohol intake: never Substance use: never Gender identity (if verbalized by the patient): Female Spiritual care concerns: No Meds Home Medications and Allergies Home Medications Medication Instructions Recorded Confirmed Type prenat.vits,eliza,[id number]-efaxl 1 tablet PO DAILY 04/17/20 10/22/20 History Allergies Allergy/AdvReac Type Severity Reaction Status Date / Time No Known Allergies Allergy Verified 10/17/20 14:01 Vital Signs Vital Signs - 24 hr 10/22/20 12:00 10/22/20 12:15 10/22/20 12:30 Pulse Rate 72 72 79 Blood Pressure 135/90 123/81 138/90 10/22/20 12:45 10/22/20 13:00 10/22/20 13:15 Pulse Rate 71 68 78 Blood Pressure 137/82 137/86 130/85 10/22/20 13:30 10/22/20 14:00 10/22/20 14:15 Pulse Rate 78 80 79 Blood Pressure 125/83 143/83 H 134/84 10/22/20 14:30 10/22/20 14:45 10/22/20 15:00 Pulse Rate 74 72 79 Blood Pressure 134/86 130/82 138/95 H Exam Const: General: healthy appearing, no acute distress, alert and awake Resp: Auscultation: clear to auscultation bilaterally Cardio: Rate: regular rate Rhythm: regular rhythm GI: Inspection: non-distended and other (gravid) GI Palp: Yes Soft to palpation and No Tenderness to palpation present (GI) Extrem: General: no calf tenderness and edema (2+ bilateral) bilateral Psych: Mental Status: mental status grossly normal H&P: Results Labs Labs: Short CBC 10/22/20 Range/Units 12:11 WBC 13.4 H (4.5-10.0) K/mm3 Hgb 13.7 (12.0-15.0) g/dL Hct 40.0 (37.0-47.0) % Plt Count 312 (150-375) k/mm3 BMP 10/22/20 12:11 Sodium 135 L Potassium 4.0 Chloride 106 Carbon Dioxide 19 L BUN 14 Creatinine 0.70 Glucose 73 Calcium 10.3 H Liver Function 10/22/20 Range/Units 12:11 Total Bilirubin 0.2 (0.2-1.3) mg/dL AST 28 (14-36) U/L ALT 19 (4-35) U/L Alkaline Phosphatase 179 H (38-126) U/L Albumin 3.6 (3.5-5.1) g/dL Assessment and Plan Assessment and plan (1) Severe preeclampsia: Code(s): O14.10 - Severe pre-eclampsia, unspecified trimester Status: Acute Assessment and Plan: She was advised to proceed with delivery due to severe pre-E. Labs normal other than >5 gram proteinuria on 24 hour urine. Continue magnesium for 24 hours and watch BP closely. BP mildly elevated, no severe elevations up until this point. GBS unknown but membranes intact so no GBS prophylaxis necessary since planning (2) Breech presentation: Code(s): O32.1XX0 - Maternal care for breech presentation, not applicable or unspecified Status: Acute Assessment and Plan: She was advised to proceed with C section due to breech presentation. She signed consent after risks, benefits, complications, and alternatives discussed with patient and her .
--- NOTE | 2020-10-22 15:13 | WPDHPUPDATE1 ---
History and Physical Update Update Date/Time: 10/22/20 15:13 History and Physical has been reviewed, including an updated exam of the patient. There are NO changes in the patient's condition. Risks, benefits, and alternatives have been discussed and questions answered. Patient agrees to proceed with procedure.
--- NOTE | 2020-10-22 15:17 | W.PM.PROC2 ---
Procedure Note - Detailed Date of Procedure 10/22/20 Pre-op Diagnosis Severe preeclampsia, breech presentation Post-op Diagnosis same Procedure Performed Primary [facility] Surgeon Virgie Mcfarlane MD Anesthesia spinal Indications Severe preeclampsia and breech presentation Findings Male , eunice breech presentation, Apgars 8/9; weight 4# 9oz; normal uterus, tubes, ovaries Description of Procedure She was taken to the operating room where spinal anesthesia was obtained and found to be adequate. She was prepared and draped in the normal sterile fashion in the dorsal supine position with a leftward tilt. A Pfannenstiel skin incision was made with a scalpel and extended to the underlying layer of fascia. The fascia was incised in the midline with the scalpel and extended laterally with the Henry scissors. The underlying rectus muscles were dissected off bluntly and sharply. The rectus muscles were in the midline. The peritoneum was entered bluntly and extended inferiorly and superiorly with good visualization of the bladder. The bladder blade was inserted. The lower uterine segment was incised in a transverse fashion with the scalpel. The incision was digitally stretched in a cephalocaudal direction. The membranes were ruptured with clear fluid noted. The hips were at the incision. Gentle traction was placed on the hips until the level of the scapula and was delivered. The remainder of the baby, including the head, came out easily with no maneuvers needed. Delayed cord clamping was done since the infant was crying and moving and vigorous on the abdomen. The cord was then clamped x2 and cut. The infant was passed to the waiting nurse. Cord gas and cord blood was obtained. The placenta was delivered spontaneously. The uterus was exteriorized and cleared of all clots and debris. The uterine incision was closed using 0 Vicryl in a running locked fashion. The uterus was then returned to the abdomen. The gutters were cleared of all clots and debris. The uterine incision was reinspected and found to be hemostatic. The rectus muscles were reapproximated using an 0 Vicryl [id number] suture. The rectus muscles were inspected. Any bleeding points were cauterized. The fascia was closed using 0 Vicryl in a running fashion. The subcutaneous tissue was irrigated. Any bleeding points were cauterized. The skin was then closed using in sore absorbable nyasia. She tolerated the procedure well. Sponge, lap, needle, and instrument counts were correct x2. She was taken to the recovery area in stable condition. Estimated Blood Loss 50 Drains Yes (Galvez) Packing No Pathology yes Complications No immediate complications Condition stable Disposition floor
[2020-10-22] MEDS: OXYTOCIN 30 UNITS/NS 500 ML 30 UNITS/500 ML BAG 125 UNITS IV CONT (17:26)
[2020-10-22] MEDS: ONDANSETRON INJ 4 MG/2 ML VIAL IV PUSH (23:18)
[2020-10-23] VITALS (7 sets, daily range): BP systolic 123–148; BP diastolic 83–98; PULSE 84–102; RESP 14–16; TEMP 36.5–37.4; O2SAT 98–100
[2020-10-23] MEDS: MAGNESIUM SULF 20GM/WATER500ML 500 ML 50 MG IV CONT ×2 (02:52→13:25)
--- NOTE | 2020-10-23 03:35 | PC.NURSE ---
This patient, Lázaro Smyth, was received from L&D on 10/22/20 at 1848. Patient/family oriented to unit policies and routines
--- NOTE | 2020-10-23 03:36 | PC.NURSE ---
Upon pt getting to the floor, a small amount of bloody drainage was noted at the incision site. It was cleaned up and no other presented. At around 2200 pt called out worried about her bleeding, upon assessment pt incision was weeping blood drainage,gown and blanket were saturated. cleaned the incision and more continued to drain out continuously. Placed a ABD dressing over incision and applied pressure, after a few minutes the bleeding seemed to decrease. Instructed patient to hold a pillow tightly over her abdomen to continue pressure. I reassessed the dressing 10 minutes later and the dressing was saturated in blood colored fluid with a small gap in the incision about 0.5cm long. I held pressure and contacted dr Thakur. She stated to apply a pressure dressing to incision and if bleeding did not slow down to let her know. I applied gauze pads folded in half along the incision with and ABD pad over them and taped them secure with foam tape, then applied an abdominal binder. I have reassessed patients abdomen for bleeding multiple times but the dressing remains dry and intact. will continue to monitor
[2020-10-23] MEDS: HYDROcodone/acetaminophen (*CRX) 5-325 MG TABLET 1 TAB PO ×2 (05:06→17:12)
[2020-10-23] MEDS: IBUPROFEN 600 MG TABLET PO ×2 (05:06→17:13)
[2020-10-23 05:18] LABS: Basophils Absolute Auto 0.1 K/mm3 (0.0-0.1); Basophils Percent Auto 0.4 % (0.2-1.2); Eosinophils Percent Auto 0.1 % (0-4.4); Hematocrit 32.5 % (37.0-47.0); Hemoglobin 11.1 g/dL (12.0-15.0); Immature Granulocyte Absolute 0.11 K/mm3 (0.00-0.031); Immature Granulocyte Percent A 0.7 % (0-0.5); Lymphocytes Absolute Auto 2.37 K/mm3 (0.9-3.2); Lymphocytes Percent Auto 14.5 % (18.3-44.2); Mean Corpuscular HGB Conc 34.2 g/dl (32-36); Mean Corpuscular Hemoglobin 28.6 pg (26-34); Mean Corpuscular Volume 83.8 fl (80-100); Monocytes Absolute Auto 0.7 K/mm3 (0.1-0.6); Neutrophils Absolute Auto 13.2 K/mm3 (1.3-6.7); Neutrophils Percent Auto 80.3 % (45.5-73.1); Platelet Count Result 280 k/mm3 (150-375); Red Blood Count 3.88 M/mm3 (4.2-5.4); Red Cell Distribution Width 13.9 % (11.5-14.5); White Blood Count 16.4 K/mm3 (4.5-10.0)
--- NOTE | 2020-10-23 08:30 | PC.NURSE ---
Mother called out for assist with feeding. Mother reports infant has been sleepy and difficult to wake for latching. Discussed the infant. Early infants have their own unique set of challenges establishing . Infants born early often have less stamina and may be sleepier, have more difficulties with latch, suck and swallow and maintaining body temperature. Potential problems for mother of early infants are establishing a good milk supply due to lack of adequate stimulation of supply. is able to freely thrust tongue past gum ridge and flange both lips. Skin is intact on both nipples, no redness and bruising noted. Reviewed feeding cues, frequencies, duration of feedings, feeding elimination flow sheet, and signs of adequate intake. Demonstrated stimulation techniques to wake for feeding. Assisted with to breast. Reviewed positioning/alignment in cross cradle, holding breast in ?U? hold and guided asymmetrical latch on. Discussed rational for each. Infant able to latch correctly. Infant nursed eagerly with steady draws and occasional swallowing noted, followed with long pausing then falling asleep and releasing latch. Suggested mother stimulate while feeding to increase stimulate, increase intake and to assist with maintaining deep latch. Reviewed signs of a correct latch, effective nursing and suck swallow ratio. Infant would slip to shallow latch, mother reports tenderness. Demonstrated how to adjust latch more deeply while feeding. Mother reports she can feel change in latch and has no tenderness. Nipple care reviewed of lanolin after feedings, warm compresses as needed. Reviewed effective vs ineffective nursing. Discussed has bursts of effective nursing and may not be transferring milk as needed. Suggested mother initiate pumping after each feeding to assist with stimulating milk supply and offer EBM as supplement to infant. Instructed mother to call out for RN assistance if she is unable to latch infant for feeding or she has discomfort with nursing.
[2020-10-23] MEDS: MULTIVIT/MIN/PREN/FOL AC/IRON TABLET 1 TAB PO (08:58)
[2020-10-23] MEDS: DOCUSATE SODIUM 100 MG CAPSULE PO ×2 (08:58→17:12)
[2020-10-23 09:25] LABS: Rapid Plasma Reagin Non-Reactive (NonReactive)
--- NOTE | 2020-10-23 09:30 | PC.NURSE ---
Offered to assist mother with pumping. Mother is very tired and wishes to rest and bottle feed the next few feedings. Mother will call out when ready to return infant to breast and initiate pumping.
[2020-10-23] MEDS: LACTATED RINGERS 1,000 ML 75 ML IV CONT (11:49)
--- NOTE | 2020-10-23 12:15 | WPDANLDPN2 ---
Anes-Prog Note L&D Date/Time: 10/23/20 12:15 Comfortable throughout: section Neuraxial method: spinal Epidural/Spinal procedure site: clean & non-tender Neuro status: Neuro function grossly intact. Cardiovascular status: normal Respiratory status: normal Airway patency: baseline Mental status: baseline Post-Op hydration status: normal Vital Signs: Last Vital Signs Temp 36.5 C 10/23/20 11:51 Pulse 86 10/23/20 11:51 Resp 16 10/23/20 11:51 BP 123/87 10/23/20 11:51 Pulse Ox 99 10/23/20 11:51 Pain score (VAS): 04/20 I/O: Intake & Output 10/22/20 10/23/20 10/23/20 23:59 07:59 15:59 Intake Total 1000 400 Output Total 527 211 6334 Balance -450 50 -1600 Post-procedural complaints: none Patient feedback: Patient satisfied with anesthetic care.
--- NOTE | 2020-10-23 12:16 | WPDANLDNPN2 ---
Anes-Prog Note L&D-Neuraxial Date/Time: 10/23/20 12:16 Neuraxial medications: intrathecal PF morphine Opiod-related complaints: none Patient feedback: Patient satisfied with post-operative pain management.
--- NOTE | 2020-10-23 12:56 | P.PNOB_ITS ---
OB - PN: Subj Subjective Date/time seen: 10/23/20 12:56 Patient comments: no complaints, pain well controlled, incisional pain, tolerating diet and other (Lochia similar to menses. Mild blurry vision but no DOBBINS, shortness of breath) baby status: doing well OB - PN: Obj Data Labs CBC & Chem 7: 10/23/20 03:21 10/22/20 12:11 Labs: Laboratory Results - last 24 hr 10/22/20 10/22/20 10/23/20 12:11 12:11 03:21 WBC 16.4 H RBC 3.88 L Hgb 11.1 L Hct 32.5 L MCV 83.8 MCH 28.6 MCHC 34.2 RDW 13.9 Plt Count 280 MPV 11.0 H Immature Gran % (Auto) 0.7 H Neut % (Auto) 80.3 H Lymph % (Auto) 14.5 L [place] % (Auto) 4.0 Eos % (Auto) 0.1 Baso % (Auto) 0.4 Lymph # (Auto) 2.37 [place] # (Auto) 0.7 H Eos # (Auto) 0.0 Baso # (Auto) 0.1 Abs Immat Gran (auto) 0.11 H Absolute Neuts (auto) 13.2 H Absolute Nucleated RBC 0.0 Nucleated RBC % 0.0 RPR Non-reactive Blood Type O Positive Antibody Screen Negative OB - PN A/P Assessment and Plan (1) Severe preeclampsia: Code(s): O14.10 - Severe pre-eclampsia, unspecified trimester Status: Acute Assessment and Plan: Doing well with BP mildly elevated to normal. Continue magnesium 24 hours (delivered 15510/22). Continue to observe BP and symptoms closely. (2) Separation of wound with drainage, : Code(s): O90.0 - Disruption of delivery wound Status: Acute Assessment and Plan: Small wound separation, reapproximated with Dermaflex. Continue pressure dressing and binder and watch closely Plan day: 1 (s/p C section, doing well) Plan: routine care Comments: They are tentatively planning discharge Thursday 10/26 Time Spent With Patient Time: Total time spent is greater than 50% in coordination of care (as documented) at patient's floor/unit and/or counseling patient: Exam Const: General: no acute distress Resp: Auscultation: clear to auscultation bilaterally Cardio: Rate: regular rate Rhythm: regular rhythm GI: Inspection: non-distended, incision (3 cm separation w/ slight ooze of blood. Reapproximated, Dermaflex applied) and other (Fundus firm and nontender at umbilicus) GI Palp: Yes abdominal tenderness (appropriate ) and Yes Soft to palpation Extrem: General: no calf tenderness and edema bilateral (trace, improved)
[2020-10-24] VITALS: BP 116/78; PULSE 93; RESP 16; TEMP 37.1; O2SAT 99
[2020-10-24] MEDS: HYDROcodone/acetaminophen (*CRX) 5-325 MG TABLET 1 TAB PO ×3 (00:11→17:29)
[2020-10-24] MEDS: IBUPROFEN 600 MG TABLET PO ×3 (00:12→17:28)
--- NOTE | 2020-10-24 07:49 | PM.OBPNVD ---
OB - PN: Subj Subjective Date/time seen: 10/24/20 07:49 Patient comments: no complaints, pain well controlled, tolerating diet, flatus present and other (Ambulating and voiding without problems. Lochia similar to menses) baby status: doing well OB - PN: Obj Data Labs CBC & Chem 7: 10/23/20 03:21 10/22/20 12:11 Labs: Laboratory Results - last 24 hr 10/22/20 12:11 RPR Non-reactive OB - PN A/P Assessment and Plan (1) Severe preeclampsia: Code(s): O14.10 - Severe pre-eclampsia, unspecified trimester Status: Acute Assessment and Plan: Doing well with normal to mildly elevated BP now off magnesium. Continue to observe closely (2) Separation of wound with drainage, : Code(s): O90.0 - Disruption of delivery wound Status: Acute Assessment and Plan: Superficial wound separation without active bleeding or signs of infection. Will observe for now and likely let it heal by secondary intention Plan day: 2 (s/p C section, doing well) Plan: routine care Comments: Planning discharge Thursday 10/26 Time Spent With Patient Time: Total time spent is greater than 50% in coordination of care (as documented) at patient's floor/unit and/or counseling patient: Time with patient: less than 15 minutes Exam Const: General: no acute distress Resp: Auscultation: clear to auscultation bilaterally Cardio: Rate: regular rate Rhythm: regular rhythm GI: Inspection: non-distended, incision (2-3 cm separation superficial without erythema, drainage, or induration) and other (Fundus firm and nontender below umbilicus) GI Palp: Yes abdominal tenderness (appropriate) and Yes Soft to palpation Extrem: General: no edema
[2020-10-24 09:00] VITALS: PULSE 84; RESP 18; O2SAT 99
[2020-10-24] MEDS: MULTIVIT/MIN/PREN/FOL AC/IRON TABLET 1 TAB PO (09:21)
[2020-10-24] MEDS: DOCUSATE SODIUM 100 MG CAPSULE PO ×2 (09:21→17:28)
[2020-10-24 10:35] VITALS: BP 135/85; PULSE 84; RESP 18; TEMP 36.9; O2SAT 99
--- NOTE | 2020-10-24 11:15 | PC.NURSE ---
Consult with pt., states she is well rested and interested in pumping. Mother mother states ICP has ordered to be supplemented after each feeding due to prematurity. Discussed infants may have their own unique set of challenges of establishing . Infants born early often have less stamina and may be sleepier, have more difficulties with latch, suck and swallow and maintaining body temperature. Mother of early infants may have difficulties establishing a good milk supply due to lack of adequate stimulation of supply. Assisted with to breast. Reviewed positioning/alignment in cross cradle, holding breast in U hold and guided asymmetrical latch on. was able to latch correctly. nursed eagerly with steady draws for short bursts followed with long pausing then releasing latching. Suggested mother stimulate to keep awake and nursing to increase intake and stimulation to breast. Reviewed signs of a correct latch, effective nursing and suck swallow ratio. Infant was able to maintain latch without discomfort to mother fro 15 minutes. Nipple care reviewed. Mother will follow feeding with supplementation and pumping. Instructed mother to call out for RN assistance if she is unable to latch for feeding or she has discomfort with nursing. Instructed feeding should be initiated three hours from start of last feeding or if feeding cues are noted before. Mother voiced understanding of information shared.
--- NOTE | 2020-10-24 12:30 | PC.NURSE ---
Breast pump provided due to /ineffective feeding. Instructions given on breast pump care and usage, pumping schedule, nipple care, and collection and storage of breast milk. Encouraged [id number], breast massage and manual expression to stimulate supply. Assessed patient for correct flange size, placement and draw. Patient verbalizes and demonstrates understanding of instructions.
[2020-10-24 20:10] VITALS: BP 127/75; PULSE 90; RESP 16; TEMP 37.3; O2SAT 98
[2020-10-25] VITALS (7 sets, daily range): BP systolic 127–151; BP diastolic 83–101; PULSE 65–90; RESP 13–20; TEMP 36.6–36.9; O2SAT 97–100
[2020-10-25] MEDS: IBUPROFEN 600 MG TABLET PO ×3 (05:16→18:52)
[2020-10-25] MEDS: HYDROcodone/acetaminophen (*CRX) 5-325 MG TABLET 1 TAB PO ×2 (05:16→18:52)
--- NOTE | 2020-10-25 09:32 | PM.OBPNVD ---
OB - PN: Subj Subjective Date/time seen: 10/25/20 09:32 Patient seen at bedside. Patient reports doing well this morning. Pain well controlled medication. Denies any headache, chest pain, shortness breath, nausea, or vomiting. Tolerating regular p.o. diet. Voiding without difficulty. Passing flatus. Ambulating well. Small area of separation along incision has not increased in size. OB - PN: Obj Data Labs CBC & Chem 7: 10/23/20 03:21 10/22/20 12:11 OB - PN A/P Assessment and Plan (1) Delivery by section using transverse incision of lower segment of uterus: Code(s): O82 - Encounter for delivery without indication Status: Acute Assessment and Plan: POD#3 doing well continue pain medication PRN encourage ambulation and use of IS pt requesting POD#4 discharge, so anticipate dc home tomorrow (2) Severe preeclampsia: Code(s): O14.10 - Severe pre-eclampsia, unspecified trimester Status: Acute Assessment and Plan: doing well s/p magnesium sulfate BP WNL patient currently asymptomatic (3) Separation of wound with drainage, : Code(s): O90.0 - Disruption of delivery wound Status: Acute Assessment and Plan: small area of separation reapproximated with steri strips no bleeding or drainage noted this morning Time Spent With Patient Time: Total time spent is greater than 50% in coordination of care (as documented) at patient's floor/unit and/or counseling patient: Exam Const: General: cooperative, healthy appearing, comfortable and no acute distress GI: Inspection: non-distended GI Palp: Yes Soft to palpation and Yes Tenderness to palpation present (GI) (minimal, appropriate tenderness) Other: fundus firm below umbilicus; inc with small 1.5-2cm area of separation noted along right side of incision, no bleeding or drainage noted, steristrips applied to enhance reapproximation, rest of incision intact Extrem: Right lower extremity: no edema Left lower extremity: no edema Other: no calf tenderness
[2020-10-25] MEDS: MULTIVIT/MIN/PREN/FOL AC/IRON TABLET 1 TAB PO (11:08)
[2020-10-25] MEDS: DOCUSATE SODIUM 100 MG CAPSULE PO ×2 (11:08→18:51)
[2020-10-26] MEDS: IBUPROFEN 600 MG TABLET PO ×2 (04:09→11:26)
[2020-10-26] MEDS: HYDROcodone/acetaminophen (*CRX) 5-325 MG TABLET 1 TAB PO ×2 (04:09→11:27)
[2020-10-26 04:15] VITALS: BP 136/95; PULSE 73; TEMP 36.4
--- NOTE | 2020-10-26 08:32 | P.PNOB_ITS ---
OB - PN: Subj Subjective Date/time seen: 10/26/20 08:32 Patient doing well. Pain well controlled with medication. Denies any headache, chest pain, shortness of breath, nausea, or vomiting. Patient also denies any visual changes or specific upper abdominal pain. Patient is ambulating without difficulty. Voiding well. Reports passage of flatus. Patient reports minimal oozing from right side of surgical incision where small area of separation has been previously noted. OB - PN: Obj Data Labs CBC & Chem 7: 10/23/20 03:21 10/22/20 12:11 OB - PN A/P Assessment and Plan (1) Delivery by section using transverse incision of lower segment of uterus: Code(s): O82 - Encounter for delivery without indication Status: Acute Assessment and Plan: POD#4 doing well continue routine postoperative care dc home in stable condition emergency precautions reviewed f/u in office in 1 week (2) Separation of wound with drainage, : Code(s): O90.0 - Disruption of delivery wound Status: Acute Time Spent With Patient Time: Total time spent is greater than 50% in coordination of care (as docum ented) at patient's floor/unit and/or counseling patient: Exam Const: General: cooperative, healthy appearing, comfortable and no acute distress GI: Inspection: non-distended GI Palp: Yes Soft to palpation and Yes Tenderness to palpation present (GI) (appropriately tender) Other: fundus below umbilicus, inc appears reasonably intact with steri strips covering small area of separation, minimal old dark blood noted on gauze pad covering incision Extrem: Right lower extremity: no edema Left lower extremity: no edema Other: no calf tenderness
--- NOTE | 2020-10-26 08:38 | PM.OBDSVD ---
DS: Admitting Diagnosis Admitting Diagnosis Admitting Diagnosis: Preeclampsia with severe features OB - DS: Summary OB Procedures : PIH Mgmt OB Procedures Intrapartum: OB Procedures: : None Peripartum Data Procedures: Procedures Operation Date: 10/22/20 15:00 Actual Procedure Side Surgeon jeancarlos Marino Section Virgie Mcfarlane MD Time Spent with Patient Time attestation: Total time spent providing and/or coordinating discharge services: DS: Data Data Completed and Pending Pending studies at discharge: Pending at discharge 10/22/20 16:00 Surgical [PTH] Routine Discharge Plan Discharge Attending physician on discharge: Kacie Thakur Discharging Clinician: Kacie Thakur Anticipated Discharge Date/Time: 10/26/20 08:38 Patient Disposition: Home, Self-Care Activity: may drive after 2 weeks, as tolerated and pelvic rest Diet: regular Discharge Instructions: Call office ([phone]) to schedule the following appointments: 1. Blood pressure and postoperative/wound check in 1 week. 2. visit in 4-6 weeks. You may take Ibuprofen 600mg every 6 hours as needed for pain. I have sent a prescription for a stronger pain medication, [place], to your pharmacy. You may take this as prescribed for breakthrough pain (pain that is not controlled with Ibuprofen). No driving for at least two weeks. You also may not drive while taking narcotics. I would also like for you to take your blood pressure at home and have sent a blood pressure monitor to your pharmacy. Please take your blood pressure at home and record measurements in a log. Please bring log to your next appointment. If the top number (SBP) is greater than 160 or the bottom number (DBP) is greater than 110, you need to call the office or go to the emergency department. Pain medication may make you constipated. It may be helpful to take an [id number] stool softener, such as Colace and/or Senokot, along with the pain medication to help lessen constipation. Call office or go to ED for pain not controlled with medication, headache, chest pain, shortness of breath, fever, chills, persistent nausea or vomiting, severe abdominal pain, heavy vaginal bleeding >2 pads/hour, foul vaginal discharge or odor, any redness near incision, severe pain, pus or drainage from incision site, or problems with your breasts. Education: Mom and Baby Guide Given to: Mother Follow-Up: Call your delivering provider's office for an appointment to be seen in: Tuesday Mom and baby should come to the [facility] for the follow-up appointment. Appointment Date/Time: October 29, 2020 at 10:00 am What to expect at your follow-up visit: Physical Assessment Call [phone] if you are unable to keep your appointment time. BREAST CARE: * Wear a snug supportive bra. * For engorgement discomfort: Breast Feeding: * Apply warm moist washcloths * Express milk as needed to relieve engorgement * Wear loose clothing * For sore nipples: * Identify correct latch-on * Apply warm moist washcloths before and after nursing * Air dry nipples after nursing * May apply Lansinoh cream to nipples ABDOMINAL INCISION: * Allow incision to air dry * Do NOT use lotions for powders on your incision * When showering, allow soap and water to run over the incision, but do not wash incision PERINEAL CARE: * Until bleeding stops, use your rose bottle after urinating * Change your pad frequently throughout the day * No tub baths until seen by your physician - You may shower ACTIVITY: * Rest as much as possible. * Do not exercise or lift anything heavier than your baby (such as laundry or other children.) * Avoid stairs or driving as much as possible. * Do not put anything into the vagina. No douching, tampons, or sexual activity until seen by physician. NOTIFY PHYSICIAN IF YOU
[2020-10-26] MEDS: MULTIVIT/MIN/PREN/FOL AC/IRON TABLET 1 TAB PO (09:14)
[2020-10-26] MEDS: DOCUSATE SODIUM 100 MG CAPSULE PO (09:14)
[2020-10-26 09:20] VITALS: BP 135/77; PULSE 81; RESP 18; TEMP 36.7
[2020-10-29 09:46] VITALS: BP 130/91; PULSE 86; RESP 20; TEMP 37; O2SAT 100
--- NOTE | 2020-10-29 11:10 | PC.NURSE ---
DR FORD OFFICE NOTIFIED OF INCISION OOZING BRIGHT RED BLOOD AT PATIENT FOLLOW UP APPOINTMENT--DR FORD'S MA CALLED BACK AT 1107,INFORMED DR EMELY NESS THE AREA OF BLOOD WAS QUARTER SIZE,INCISION APPEARED TO BE INTACT AND PLACED STERI STRIPS ON AREA THAT WAS OOZING. INFORMED DR FORD'S MA ALSO OF PATIENT ELEVATED B/P AND NO SYMPTOMS, INFORMED DR FORD SEEING PATIENT NEXT WEEK
== END 2020-10-26 12:32 | disposition home or self-care (01) | DRG 540 ==
LOC: ANHOB2 10-26 08:41 → ANHOBPP 10-29 08:39
PROVIDERS: Admitting Provider Obstetrics & Gynecology; Visit Provider Student in an Organized Health Care Education/Training Program
PROC: 10D00Z1 Extraction of Products of Conception, Low, Open Approach (ICD-10-PCS; CPT 59514; principal; 2020-10-22 15:00)
DX: O14.14 Severe pre-eclampsia complicating childbirth (principal); Z37.0 Single live birth; Z3A.35 35 weeks gestation of pregnancy; O32.1XX0 Maternal care for breech presentation, not applicable or unspecified; O90.0 Disruption of cesarean delivery wound
CPT/HCPCS: 36415; 80053; 84550; 85025; 86592; 86850; 86900; 86901; 88307; A9270; J2274; J2405; J2590; J3475; J7120

== ENCOUNTER 2020-12-23 13:33 | Outpatient (RCR) | payer OTHER, SELFPAY ==
--- NOTE | 2020-12-23 14:15 | PC.NURSE ---
pt seen on 12/23/2020 IN 1305 OUT 1350 HISTORY: Pt. delivered at [facility] [id number]. had no complications after delivery. Mother had no complications after delivery. is now 2months old. Infant appears to be well cared for. has been seen by [facility] as scheduled. Infant last seen by ICP today for regular check up. Mother reports: Currently at 6+ wets per day and 2-4 yellow seedy stools per day. has lost 3 oz from last visit. Mother was recently visiting family for 3 weeks, her milk supply has decreased and she now has pain to nipple and areola. Mother also reports a firm fullness at areas around the breast. Mother states she pumped freq while visiting and was unable to feed or pump during the long travel flights. 's feeding schedule was off with freq bottle feeding and she was not stimulating every 3 hours. Mother feels her areolas now look different color and shape. Mother denies nipple discomfort with feedings. Mother wishes: Resolve discomfort to breast and increase supply. OBSERVATION: Both areolas are very dry and slightly edematous. Firm areas around breast are not warm to touch no redness noted or fever noted. Suggested mother use nipple cream of her choice after all feedings and after showering to assist with dry tissue. Areas to breast feel like plugged ducts, advised warm heat and massage several times per day and during feeding to help release. The edematous areas appear to be were the flange would sit with pumping. Suggested if mother needs to pump to use the lowest setting that she is able to draw out milk. Advised if she could avoid pumping for a few days and put to breast my allow areas to resolve. Edema may be from a tight flange with heavy draw. Discussed milk supply may increase with regular feedings with infant at breast and returning to a 3 hour schedule now at home. Mother will work with above suggestions for 2-3 days and call if not resolving. PLAN: Mother will call with further questions or concerns. Follow up phone call scheduled for 12/26/2020.
== END 2021-03-23 23:59 | disposition home or self-care (01) ==
LOC: ANHOBOP 13:33
PROVIDERS: Visit Provider Pediatrics
DX: Z39.1 Encounter for care and examination of lactating mother (principal); N64.4 Mastodynia
CPT/HCPCS: 99212; G0463